=== PATIENT | female | born 1975 | race Caucasian/White ===

== ENCOUNTER → 2016-05-22 | Day surgery (SDC) | payer BC ==
--- NOTE | 2016-05-15 15:11 | HP ---
PREOPERATIVE HISTORY AND PHYSICAL: DATE OF ADMISSION: 05/22/16 - This patient is scheduled for same-day surgery admission by Dr. Cabezas on 05/22/16. DATE OF PREOPERATIVE HISTORY AND PHYSICAL EXAMINATION: Saturday, . ATTENDING SURGEON: Dr. Trino Cabezas (dictated by Jayme Blake NP). CHIEF COMPLAINT: Dysphagia. HISTORY OF PRESENT ILLNESS: The patient is a 40-year-old female known to Dr. Cabezas status post laparoscopic gastric banding in 2013. She saw Dr. Cabezas, 03/23/16, in our office complaining of dysphagia and odynophagia. She was seen in the emergency room at [facility] where she works and had a CAT scan which showed no slip of the Lap-Band. She went over the CAT scan with hepatobiliary surgeon at [facility] and was told that she has a hiatal hernia. She has not been able to eat much, but is drinking. She started Protonix 40 mg 1 to 2 tablets daily and is also taking Tums and Pepto-Bismol chews that seemed to help. She is propping up her head on 3 pillows at night because of the symptoms. Dr. Cabezas discussed the findings with the patient and has recommended laparoscopic repair of the hiatal hernia and repositioning of the Lap-Band. He discussed all of the different management options, the nature of the surgical procedure, the relevant risks and benefits, and the need for a liquid diet postoperatively. Today, I reviewed the typical postoperative care and recovery and the patient has had a chance to ask questions and stated that she understands the information and is satisfied with the answers given to her questions. She will sign surgical consent on the day of surgery. PAST MEDICAL HISTORY: Significant for chronic left knee pain, insulin resistance, and polycystic ovarian syndrome. PAST SURGICAL HISTORY: Laparoscopic gastric banding, 2013, by Dr. Cabezas; partial hysterectomy with ovaries remaining in 2015; laparoscopic cholecystectomy, 2001; left knee reconstruction, 2011, after sports-related injury; exploratory laparoscopy, 1996, to evaluate for ovarian abnormalities. OB HISTORY: 3, para 3, status post partial vaginal hysterectomy with ovaries remaining. MEDICATIONS: 1. Pantoprazole 40 mg p.o. daily. 2. Hydrocodone/acetaminophen 7.5 mg/325 mg for chronic left knee pain as prescribed by her primary care doctor, Dr. Petros Koch. ALLERGIES: LATEX causes rash. FAMILY HISTORY: Very strongly positive for obesity on both sides with diabetes and heart disease as well. No known anesthesia complications, bleeding tendencies, or clotting disorders. SOCIAL HISTORY: She lives with her 3 sons and boyfriend. 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. She has never been a smoker. She uses alcohol moderately and denies the use of other substances. REVIEW OF SYSTEMS: She denies any cardiac conditions or complaints. She denies any respiratory conditions or complaints. She denies any previous anesthesia complications. She denies any history of deep vein thrombosis or pulmonary embolism. She did receive blood transfusions preoperatively before her partial vaginal hysterectomy. There was no malignancy found with that procedure. She underwent an upper GI series on 03/23/16 which revealed the Lap- Band in unchanged position and a small sliding-type hiatal hernia and no evidence of GERD. She denies any constipation. She denies any dysuria. PHYSICAL EXAMINATION GENERAL SURVEY: The patient is a 40-year-old female, obese, well developed, in no acute distress. VITAL SIGNS: Height 67 inches, weight 190 pounds, body mass index 29.8, blood pressure 124/72, pulse 90 and regular, respiratory rate 18, temperature 98.9 tympanic. HEENT: Benign. NECK: Supple. No cervical lymphadenopathy. No thyromegaly. LUNGS: Breath sounds bilaterally clear and equal. HEART: Regular rate and rhythm. No murmurs or rubs appreciated. ABDOMEN: Obese, soft, nontender throughout, nondistended. Palpable Lap-Band port, right upper abdomen. Active bowel sounds. Well-healed surgical scars. No obvious organomegaly or evidence of ventral hernia. No skin fold rashes. PELVIC AND RECTAL: Exams deferred. EXTREMITIES: Warm without edema or skin ulcerations. NEUROLOGIC: Alert and oriented x3. Steady gait. SKIN: Warm, dry, intact. IMPRESSION: Dysphagia and odynophagia. PLAN: Same-day surgery admission to Dr. Cabezas' service, 05/22/16, for laparoscopic repair of hiatal hernia and repositioning of Lap-Band. JAYME BLAKE NP CC: Dr. Petros Koch * [id number]/[facility] #: [id number] [facility] CENTERRox[facility]
[~2016-05-22] MED LIST: Acetaminophen IV 1GM/100ML * 100 ML IVPB ONE; Acetaminophen IV 1GM/100ML * 100 ML ONE; Buffered Lidocaine 1% SYR 3ML* 3 ML/SYR SYRINGE INTRADERM ONE; Buffered Lidocaine 1% SYR 3ML* 3 ML/SYR SYRINGE ONE; Bupivacaine 0.5% W/EPI SDV* 30 ML VIAL ONE; Clindamycin 900 MG IVPREMIX(* 900 MG/50 ML SDV IV ONE; Dexamethasone IV* 4 MG/ML 1 ML (4 MG) ONE; DiMENhydriNATE IV* 50 MG/ML VIAL IV PUSH PRN; DiMENhydriNATE IV* 50 MG/ML VIAL ONE; Famotidine IV* 10 MG/ML 2 ML (20 mg) IV ONE; Famotidine IV* 10 MG/ML 2 ML (20 mg) ONE; Glycopyrrolate IV* 0.2 MG/ML 1 ML VIAL ONE; HYDROcodone/ACET. 7.5/325 LIQ* 15 ML UDC ONE; HYDROcodone/ACET. 7.5/325 LIQ* 15 ML UDC PO PRN; HYDROmorphone INJ* 1 MG/ML CARPUJECT SYRINGE ONE; Heparin VIAL(*) 5000 UNITS/ML VIAL (FIVE THOUSAND) ONE; Ketorolac INJ* 30 MG/ML 1 ML VIAL ONE; Lidocaine 2% MPF* 2 ML VIAL ONE; Midazolam* 1 MG/ML 5 ML VIAL (5 MG) ONE; Neostigmine Methylsulfate* 2 MG/2 ML SYRINGE ONE; Ondansetron INJ* 2 MG/ML VIAL IV PRN; Ondansetron INJ* 2 MG/ML VIAL ONE; Phenylephrine IV* 40 MCG/ML 10 ML SYRINGE ONE; Propofol* 10 MG/ML 20 ML BTL IV PUSH ONE; Rocuronium* 10 MG/ML VIAL ONE; Scopolamine 1.5 mg* PATCH ONE; Scopolamine 1.5 mg* PATCH TRANSDERM SCH; Succinylcholine* 20 MG/ML 10 ML VIAL ONE; ceFAZolin 1 GM in Dextrose (*) 1 GM/50 ML BAG IVPB ONE; ceFAZolin 2 GM PREMIX (*) 2 GM/50 ML BAG IVPB ONE; fentaNYL* 50 MCG/ML 2 ML VIAL (100 MCG VIAL) ONE; oxyCODONE ORAL.SOLN* 5 MG/5 ML UDC ONE; oxyCODONE ORAL.SOLN* 5 MG/5 ML UDC PO ONE
[2016-05-22] MEDS: HYDROmorphone INJ* 1 MG/ML CARPUJECT SYRINGE IV PRN ×5 (14:03→18:11)
[2016-05-22 18:10] VITALS: BP 127/75
--- NOTE | 2016-05-23 02:24 | OP ---
DATE OF OPERATION: 05/22/16 [facility] DATE OF : 73 SURGEON: Trino Cabezas MD TRACK WORKER: Joel King MD ANESTHESIOLOGIST: Dr. Ochoa. ANESTHESIA: General endotracheal. PRE-OP DIAGNOSES: 1. Dysphagia, status post laparoscopic adjustable gastric banding. 2. Possible hiatal hernia. POST-OP DIAGNOSIS: Dysphagia with malpositioned laparoscopic adjustable gastric band with no hiatal hernia. OPERATIVE PROCEDURE: Laparoscopic revision of laparoscopic adjustable gastric band. ESTIMATED BLOOD LOSS: Minimal. IV FLUIDS: Crystalloids. SPECIMEN: None. DRAINS: None. COMPLICATIONS: None. COUNT: The instrument, needle, and sponge counts were correct. DESCRIPTION OF PROCEDURE: The patient was brought to the operating room and placed on table supine. Sequential compression devices were placed on both lower extremities. General anesthesia was administered. Abrams catheter was placed. She was positioned and padded appropriately and antibiotics were administered. Time- out was performed. Local anesthetic was infiltrated into the skin and soft tissue prior to making each incision. Entry to the abdomen was through a infraumbilical curvilinear incision using an open technique. After accessing the peritoneal cavity, a 5- mm optical trocar was placed and carbon dioxide was insufflated to a pressure of 15 mmHg. Under direct visualization, additional 5-mm trocar was placed in the right upper quadrant, two 5-mm trocars were placed in the left upper quadrant and a Mitesh liver retractor was placed percutaneously in the subxiphoid position and used to elevate the left lobe of the liver. There were no adhesions to the under surface of the liver. The lap band appeared to be tongue of the greater omentum that was taken down using a combination of LigaSure, sharp and blunt dissection. After dissecting this free, the band was inspected and it was noted to be anteriorly tilted and in order to reposition this, the band capsule was opened and portions of the capsule were excised. The band itself was opened and the underlying capsule was again incised on the stomach, so that the band could be repositioned higher up on the stomach. The gastrogastric plication sutures were not taken down. Because of the concerns for possible hiatal hernia, inspection of the diaphragm was performed anteriorly. There was no evidence of dimpling. The pars flaccida was opened and the right clint of diaphragm was well visualized. There appeared to be no posterior hiatal herniation. The scope was positioned in the left upper quadrant, so that visualization along the left clint of the diaphragm could be performed, but again there was no evidence of hiatal hernia. The band was then locked down over the stomach and then the port was accessed and all fluid was removed from the port totalling about 2 cc. Hemostasis was assured. The ports were then all removed under direct visualization and carbon dioxide was released. The wounds were closed with 4-0 Monocryl in a subcuticular fashion. Steri-Strips were applied. The patient tolerated the procedure well. She was extubated and transferred to the recovery room in stable condition. CC: Petros Koch MD * [id number]/[facility] #: [id number] [facility]
== END | disposition home or self-care (01) ==
LOC: OR 07:24
PROVIDERS: ATTEND Surgery
DX: T85.528A Displacement of other gastrointestinal prosthetic devices, implants and grafts, initial encounter (principal); Y83.1 Surgical operation with implant of artificial internal device as the cause of abnormal reaction of the patient, or of later complication, without mention of misadventure at the time of the procedure; R13.10 Dysphagia, unspecified; E11.9 Type 2 diabetes mellitus without complications; I34.1 Nonrheumatic mitral (valve) prolapse
CPT/HCPCS: A9270-GY; J0330; J0690; J1100; J1170; J1240; J1644; J1885; J2250; J2405; J2704; J3010